=== PATIENT | female | born 1990 | race Hispanic/Latino ===

== ENCOUNTER 2022-04-10 05:59 | Emergency (ER) | payer OTHER ==
[~2022-04-10] VITALS: Ht 144.8 cm; Wt 77.6 kg
== END 2022-04-10 06:58 | disposition home or self-care (01) ==
LOC: ED 05:59
DX: M75.52 Bursitis of left shoulder (principal); W01.198A Fall on same level from slipping, tripping and stumbling with subsequent striking against other object, initial encounter
CPT/HCPCS: 71045; 73030

== ENCOUNTER 2024-06-09 10:17 | Emergency (ER) | payer OTHER ==
[~2024-06-09] VITALS: Ht 144.8 cm; Wt 75.0 kg
[2024-06-09] MEDS ORDERED: KETOROLAC TROMETHAMINE 60 MG/2 ML VIAL IM ONE (10:45)
[2024-06-09] MEDS ORDERED: KETOROLAC TROME10 MG PO (11:42)
[2024-06-09 11:54] VITALS: BP 122/78
== END 2024-06-09 11:52 | disposition home or self-care (01) ==
LOC: ED 10:17
DX: R51.9 Headache, unspecified (principal); R22.0 Localized swelling, mass and lump, head
CPT/HCPCS: 70450; 96372; 99283-25; J1885

== ENCOUNTER 2024-11-16 12:38 | Emergency (ER) | payer OTHER ==
[~2024-11-16] VITALS: Ht 149.9 cm; Wt 78.0 kg
[~2024-11-16 12:38] MED LIST: KETOROLAC TROME10 MG PO
[2024-11-16] MEDS ORDERED: TETANUS-DIPHTHERIA TOXOIDS/PF 0.5 ML VIAL IM ONE (13:15)
[2024-11-16 14:14] VITALS: BP 116/74
== END 2024-11-16 14:14 | disposition home or self-care (01) ==
LOC: ED 12:38
DX: S91.312A Laceration without foreign body, left foot, initial encounter (principal); W25.XXXA Contact with sharp glass, initial encounter; Y92.009 Unspecified place in unspecified non-institutional (private) residence as the place of occurrence of the external cause
CPT/HCPCS: 12001; 73630; 90471; 90714; 99283-25